=== PATIENT | female | born 1980 | race Caucasian/White ===

== ENCOUNTER → 2021-07-25 | Outpatient (CLI) | payer OTHER, BC ==
[~2021-07-25] MED LIST: AMITRIPTYLINE H10 M1 PO; IBUPROFEN 800800 M1 PO; MEDROLDOSEPACK PO; MOBIC15 MG PO; TYLENOL325 MG PO; VICODIN 5-5001 EACH PO
== END ==
LOC: M.PC 09:00
PROVIDERS: ATTEND Anesthesiology Pain Medicine
DX: M50.123 Cervical disc disorder at C6-C7 level with radiculopathy (principal); R00.2 Palpitations; F41.8 Other specified anxiety disorders; F98.8 Other specified behavioral and emotional disorders with onset usually occurring in childhood and adolescence; Z90.49 Acquired absence of other specified parts of digestive tract; Z79.899 Other long term (current) drug therapy